=== PATIENT | female | born 1945 | race Caucasian/White ===

== ENCOUNTER 2020-12-11 20:56 | Emergency (ER) | payer OTHER, SELFPAY ==
[2020-12-11 20:57] VITALS: BP 93/50; PULSE 111; RESP 16; TEMP 36.3; O2SAT 95; BMI 36.6
[2020-12-11 21:30] VITALS: BP 93/50; PULSE 111; RESP 16; TEMP 36.3; O2SAT 95
--- NOTE | 2020-12-11 21:37 | CT_ITS ---
HISTORY: Headache EXAMINATION: CT Head or Brain W/O Contrast Injection TECHNIQUE: Multiple axial images were obtained of the head without intravenous contrast. A radiation dose optimization technique was used for this scan. IV Contrast dosage and agent: None. COMPARISON: None FINDINGS: BRAIN PARENCHYMA: No intra- or extra-axial hemorrhage. No evidence of acute infarct. No intracranial mass or mass effect. There is preservation of the marcos/white matter interface. Posterior fossa structures are unremarkable. CSF SPACES: Appropriate for age. No hydrocephalus. Basal cisterns are patent. Intracranial atherosclerotic calcifications. CALVARIUM, SKULL BASE, PARANASAL SINUSES AND MASTOID AIR CELLS: Intact calvarium. 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 No acute disease within imaged paranasal sinuses. Mastoid air cellls are well pneumatized. ORBITS: Unremarkable as visualized. ASPECTS Score for Acute Strokes: Not applicable. CT/Brain/Head without Contrast IMPRESSION: No acute intracranial abnormality. Individualized dose optimization techniques were used for this CT. at 2240 Reported and signed by: Marcos Connell MD Electronically Signed: Marcos Connell MD at 22:39 EDT Tel , Service support ,
[2020-12-11 21:52] LABS: Absolute Lymphocyte Count 0.57 X10^3/uL (0.83-4.51); Absolute Neutrophil Count 9.5 X10^3/uL (2.0-7.7); Basophil# 0.04 X10^3/uL; Basophil% 0.4 % (0-1); Eosinophil# 0.11 X10^3/uL; Hematocrit 36.5 % (37-47); Hemoglobin 11.7 g/dL (12.0-15.0); Lymphocyte # 0.57 X10^3/ul (0.83-4.51); Lymphocyte % 5.4 % (19-41); Mean Corp Hgb Conc 32.1 g/dL (32-36); Mean Corpuscular Hgb 27.1 pg (27.0-32.0); Mean Corpuscular Volume 84.5 fL (81-99); Mean Platelet Vol. 10.4 fl (6.2-12.0); Monocyte# 0.25 X10^3/uL; Monocyte% 2.4 % (0-10); NRBC Flagged by Analyzer 0 % (0-5); Neutrophil # 9.46 X10^3/uL (2.7-7.7); Neutrophil % 90.3 % (47-70); POSITIVE DIFFERENTIAL YES; POSITIVE MORPHOLOGY YES; Platelet Count 241 K/mm3 (150-450); RBC Distribution Width CV 14.6 % (11.6-14.6); RBC Distribution Width SD 45.1 fl (35.1-43.9); Red Blood Count 4.32 M/mm3 (4.2-5.4); White Blood Count 10.5 K/mm3 (4.4-11.0)
[2020-12-11 21:54] LABS: Differential Indicated SCAN CRITERIA MET
[2020-12-11 22:09] LABS: ALB/GLOB Ratio 0.8 RATIO (0.9-2.4); AST(SGOT) 163 U/L (15-37); Alanine Aminotransfer ALT/SGPT 222 U/L (13-56); Albumin, Serum 3.2 g/dL (3.2-5.0); Alkaline Phosphatase 272 U/L (45-117); Anion Gap 8 (5-15); BUN 13 mg/dL (7-18); BUN/Creat Ratio 17.1 RATIO (10-20); Calcium,Total 8.4 mg/dL (8.5-10.1); Chloride 98 mmol/L (98-107); Creatinine, Serum 0.76 mg/dL (0.55-1.02); EST Glomerular Filtration Rate 79 mL/min (>60); Est Glom Filt Rate - Afr Amer 96 mL/min (>60); Estimated Creatinine Clearance 41.45 ml/min; Globulin 4.2 g/dL (2.2-4.2); Glucose 117 mg/dL (74-106); Potassium 3.3 mmol/L (3.5-5.1); Protein, Total 7.4 g/dL (6.4-8.2); Sodium Level 135 mmol/L (136-145)
[2020-12-11 22:13] VITALS: BP 106/71; PULSE 76; RESP 18; TEMP 37.3; O2SAT 94
[2020-12-11 22:22] LABS: Differential Comment SCANNED
[2020-12-11 22:25] LABS: International Normalized Ratio 1.1; Prothrombin Time (Protime)PT. 13.2 SECONDS (11.7-14.9)
[2020-12-11 22:27] LABS: Partial Thromboplast Time 41.5 Seconds (24.1-36.2)
[2020-12-11 22:28] LABS: Lactic Acid 0.9 mmol/L (0.4-1.9)
[2020-12-11 23:01] LABS: Bacteria 0 SEEN /hpf (None Seen); Mucous, Urine 0 SEEN /hpf (<or=2+); Red Blood Cells-Urine 0 SEEN /hpf (0-5); White Blood Cells 0 SEEN /hpf (0-5)
[2020-12-11 23:04] VITALS: BP 108/73; PULSE 88; RESP 20; TEMP 37.1; O2SAT 96
[2020-12-11 23:04] LABS: Color, Urine Yellow (Yellow); Glucose, Dipstick Normal (Normal); Ketone-Dipstick Negative (Negative); Leukocyte Esterase-Dipstick Negative /ul (Negative); Nitrite-Dipstick Negative (Negative); Occult Blood-Urine 10 /ul (Negative); Protein-Dipstick Negative (Negative); Urine Bilirubin Dipstick Negative (Negative); Urine Clarity Clear (Clear); Urine Urobilinogen Normal (Normal)
[2020-12-11 23:13] LABS: Squamous Epithelial Cells - UA 0-5 SEEN /hpf (5-10)
[2020-12-11] MEDS: DiphenhydrAMINE 50 MG/ML Syringe 25 MG IV (23:30)
[2020-12-11] MEDS: Metoclopramide 10 MG/2 ML Vial IV (23:33)
--- NOTE | 2020-12-12 00:19 | EX.ED.DYSGE1 ---
HPI History of Present Illness Chief Complaint: General Illness Informant: patient Onset/Context/Timing Onset: Days (3) Context: Gradual Onset Timing: Continuous Quality: Shooting Location: Occiput Worsened by: Nothing Relieved by: Analgesics Narrative Narrative: Patient presents with headache and rash that has been getting worse over the past 3 days. Patient states her pain is over the occipital part of her head. Patient had a recent fall and injured her right arm. Patient has been wearing a sling for her right arm. Patient describes her pain as shooting. Patient states her pain is better with analgesics. Patient also noticed an erythematous patchy rash over both lower extremities, right upper extremity, neck, chest, and abdomen. Patient denies any discharge or drainage. Patient denies any fevers or chills. Patient denies any new exposures. [facility] Medical History Congestive heart failure (CHF) Congestive heart failure (CHF) Hypertension Home Medications aspirin 81 mg PO DAILY 12/11/20 [History Last Taken Unknown] atorvastatin [Lipitor] 10 mg PO DAILY 12/11/20 [History Last Taken Unknown] furosemide 40 mg PO DAILY 12/11/20 [History Last Taken Unknown] metoprolol succinate [Toprol XL] 50 mg PO BID 12/11/20 [History Last Taken Unknown] [id number]-[id number] [Multivitamin 50 Plus] 1 tab PO DAILY 12/11/20 [History Last Taken Unknown] potassium 99 mg PO DAILY 12/11/20 [History Last Taken Unknown] prednisone 60 mg PO DAILY #12 tablet 12/12/20 [Rx Last Taken Unknown] Allergy/AdvReac Type Severity Reaction Status Date / Time Sulfa (Sulfonamide Allergy Shortness Verified 12/11/20 20:58 Antibiotics) of breath Surgical History History of appendectomy History of appendectomy Social History Smoking Status: Never smoker ROS ROS ED Constitutional Constitutional ED: Denies chills or fever(s) Eyes Eyes: Reports blurry vision; Denies diplopia ENT ENT ED: Denies rhinorrhea or sore throat Cardiovascular Cardiovascular: Denies chest pain or palpitations Respiratory/Chest Respiratory/Chest: Denies cough or dyspnea Gastrointestinal Gastrointestinal: Denies nausea or vomiting Genitourinary Genitourinary ED: Denies dysuria or hematuria Musculoskeletal Musculoskeletal: Denies back pain or neck pain Integumentary Reports rash; Denies abscess Neurologic Neurologic: Reports headache(s); Denies weakness Allergic/Immunologic Allergic/Immunologic ED: Denies mouth swelling or urticaria EXAM Physical Exam Const Vital Signs: 12/11/20 20:57 12/11/20 21:30 12/11/20 22:13 Temperature 97.4 F L 97.4 F L 99.1 F Temperature Source Temporal Temporal Temporal Pulse Rate 111 H 111 H 76 Respiratory Rate 16 16 18 Respiratory Effort Normal Non-Labored Respiratory Pattern Normal Blood Pressure 93/50 L 93/50 L 106/71 Blood Pressure Mean 64 64 82 Pulse Ox 95 95 94 Oxygen Delivery Method Room Air Room Air Room Air 12/11/20 23:04 Temperature 98.7 F Temperature Source Oral Pulse Rate 88 Respiratory Rate 20 H Respiratory Effort Respiratory Pattern Blood Pressure 108/73 Blood Pressure Mean 84 Pulse Ox 96 Oxygen Delivery Method Room Air Positive well nourished, well developed and obese General Appearance ED: well developed Nutritional Appearance: obese HEENT Reports moist mucous membranes Neck supple and no JVD Resp normal respiratory effort and clear to auscultation bilaterally Cardio regular rate and regular rhythm GI normal to inspection, nondistended, normoactive bowel sounds Palpation: soft Neuro oriented x3, CN's II-XII intact bilaterally and no sensory deficits noted Sensorium / Orientation: alert Motor Exam: strength 5/5 throughout Psych mental status grossly normal Skin Skin Narrative: There is a patchy erythematous macular rash over both lower extremities, right upper extremity, neck, upper chest, and abdomen. There are no vesicles or pustules. There is no discharge or drainage. There are no petechia. There is no involvement of mucous membranes. MDM MDM MDM Narrative Medical decision making narrative: CBC shows a mild anemia with a hemoglobin of 11.7 hematocrit 36.5. Platelets were normal. PT with INR and PTT were essentially within normal limits. Comprehensive metabolic profile showed a mild hypokalemia 3.3. AST was 163, ALT was 222, and alk phos was 272. CT scan of the brain was obtained. There is no acute intracranial abnormality. This was interpreted by the radiologist and reviewed by myself. Lactate was normal. Urinalysis was normal. Patient was given a dose of Reglan and Benadryl. Patient is feeling better on reevaluation. Patient was advised of her findings. Patient was instructed to follow-up with her primary care physician in 3 to 5 days. Patient was given a dose of prednisone here. Patient was given a prescription for prednisone. Patient was instructed to return if worse in any way. Patient understood and was agreeable with the plan. All questions were answered. Lab Data Attestation: I reviewed the patient's lab results. Labs: Laboratory Results - last 24 hr 12/11/20 12/11/20 12/11/20 21:20 21:20 21:55 WBC 10.5 RBC 4.32 Hgb 11.7 L Hct 36.5 L MCV 84.5 MCH 27.1 MCHC 32.1 RDW Std Deviation 45.1 H RDW Coeff of John 14.6 Plt Count 241 MPV 10.4 Immature Gran % (Auto) 0.500 Neut % (Auto) 90.3 H Lymph % (Auto) 5.4 L [place] % (Auto) 2.4 Eos % (Auto) 1.0 Baso % (Auto) 0.4 Absolute Neuts (auto) 9.5 H Absolute Lymphs (auto) 0.57 L Nucleated RBC % 0 Differential Comment SCANNED PT 13.2 INR 1.1 APTT 41.5 H Sodium 135 L Potassium 3.3 L Chloride 98 Carbon Dioxide 29.0 Anion Gap 8 BUN 13 Creatinine 0.76 Estim Creat Clear Calc 41.45 Est GFR (MDRD) Af Amer 96 Est GFR (MDRD) Non-Af 79 BUN/Creatinine Ratio 17.1 Glucose 117 H Lactic Acid Calcium 8.4 L Total Bilirubin 0.70 AST 163 H ALT 222 H Alkaline Phosphatase 272 H Total Protein 7.4 Albumin 3.2 Globulin 4.2 Albumin/Globulin Ratio 0.8 L Urine Color Urine Clarity Urine pH Ur Specific Anthony Urine Protein Urine Glucose (UA) Urine Ketones Urine Occult Blood Urine Nitrite Urine Bilirubin Urine Urobilinogen Ur Leukocyte Esterase Urine RBC Urine WBC Ur Squamous Epith Cells Urine Bacteria Urine Mucus 12/11/20 12/11/20 21:55 22:55 WBC RBC Hgb Hct MCV MCH MCHC RDW Std Deviation RDW Coeff of John Plt Count MPV Immature Gran % (Auto) Neut % (Auto) Lymph % (Auto) [place] % (Auto) Eos % (Auto) Baso % (Auto) Absolute Neuts (auto) Absolute Lymphs (auto) Nucleated RBC % Differential Comment PT INR APTT Sodium Potassium Chloride Carbon Dioxide Anion Gap BUN Creatinine Estim Creat Clear Calc Est GFR (MDRD) Af Amer Est GFR (MDRD) Non-Af BUN/Creatinine Ratio Glucose Lactic Acid 0.9 Calcium Total Bilirubin AST ALT Alkaline Phosphatase Total Protein Albumin Globulin Albumin/Globulin Ratio Urine Color Yellow Urine Clarity Clear Urine pH 5.0 Ur Specific Anthony 1.010 Urine Protein Negative Urine Glucose (UA) Normal Urine Ketones Negative Urine Occult Blood 10 H Urine Nitrite Negative Urine Bilirubin Negative Urine Urobilinogen Normal Ur Leukocyte Esterase Negative Urine RBC 0 SEEN Urine WBC 0 SEEN Ur Squamous Epith Cells 0-5 SEEN Urine Bacteria 0 SEEN Urine Mucus 0 SEEN Radiography Diagnostic Testing: Radiology Impression Brain CT 12/11/20 21:37 IMPRESSION: No acute intracranial abnormality. Individualized dose optimization techniques were used for this CT. at 2240 Reported and signed by: Marcos Connell MD Electronically Signed: Marcos Connell MD at 22:39 EDT Tel , Service support , Discharge Plan Triage Chief Complaint: General Illness ED Provider: Tapan Moise Dx/Rx/DC Orders Clinical Impression: Headache, Dermatitis Instructions: ED Erythema, ED Headache, Tension Prescriptions: New prednisone 20 MG tablet 60 mg PO DAILY Qty: 12 RF: 0 No Action furosemide 40 mg Tablet 40 mg PO DAILY RF: 0 atorvastatin [Lipitor] 20 mg Tablet 10 mg PO DAILY RF: 0 metoprolol succinate [Toprol XL] 50 mg Tablet Extended Release 24 Hr 50 mg PO BID RF: 0 potassium 99 mg Tablet 99 mg PO DAILY RF: 0 aspirin 81 mg Tablet 81 mg PO DAILY RF: 0 Multivitamin 50 Plus Tablet 1 tab PO DAILY RF: 0 Primary Care Provider: Bryan Rooney Referrals: Bryan Rooney MD [Primary Care Provider] - 3-5 Days Disposition Disposition: Home, Self Care Discharge Date/Time: 12/12/20 01:46
--- NOTE | 2020-12-12 00:43 | ED.RN ---
daughter called and made aware of patient condition and status
[2020-12-12] MEDS: predniSONE 20 MG Tablet 60 MG PO ×2 (01:25→01:45)
[2020-12-12 01:29] VITALS: BP 121/76; PULSE 91; RESP 15; O2SAT 98
== END 2020-12-12 01:46 | disposition home or self-care (01) ==
PROVIDERS: Emergency Provider Emergency Medicine; PCP Family Medicine
DX: R51.9 Headache, unspecified (principal); R21 Rash and other nonspecific skin eruption; D64.9 Anemia, unspecified; E87.6 Hypokalemia; I11.0 Hypertensive heart disease with heart failure; I50.9 Heart failure, unspecified; Z79.82 Long term (current) use of aspirin; Z79.899 Other long term (current) drug therapy
CPT/HCPCS: 70450; 80053; 81001; 83605; 85025; 85610; 85730; 87040; 96361; 96374; 96375; 99285; J7040; A4216